=== PATIENT | female | born 1975 | race African-American/Black ===

== ENCOUNTER 2017-06-16 20:04 | Emergency (ER) | payer OTHER ==
[~2017-06-16] VITALS: Ht 162.6 cm; Wt 63.5 kg
[2017-06-16 20:07] VITALS: BP 142/90
[2017-06-16] MEDS ORDERED: TYLENOL325 MG PO (20:11)
[2017-06-16] MEDS ORDERED: ASPIR 8181 MG PO (20:11)
[2017-06-16] MEDS ORDERED: IBUPROFEN 200200 M1 PO (20:11)
[2017-06-16] MEDS ORDERED: PEPCID20 MG PO (21:08)
== END 2017-06-16 21:19 | disposition home or self-care (01) ==
LOC: ER 20:04
DX: K20.9 Esophagitis, unspecified (principal); F17.210 Nicotine dependence, cigarettes, uncomplicated

== ENCOUNTER 2017-07-20 15:11 | Emergency (ER) | payer OTHER ==
[~2017-07-20] VITALS: Ht 162.6 cm; Wt 68.0 kg
[~2017-07-20 15:11] MED LIST: ASPIR 8181 MG PO; IBUPROFEN 200200 M1 PO; PEPCID20 MG PO; TYLENOL325 MG PO
[2017-07-20 15:59] VITALS: BP 136/72
== END 2017-07-20 16:00 | disposition home or self-care (01) ==
LOC: ER 15:11
DX: K22.2 Esophageal obstruction (principal); F17.210 Nicotine dependence, cigarettes, uncomplicated

== ENCOUNTER 2018-12-14 11:33 | Emergency (ER) | payer OTHER ==
[~2018-12-14] VITALS: Ht 162.6 cm; Wt 71.3 kg
[2018-12-14 13:33] VITALS: BP 141/86
== END 2018-12-14 13:34 | disposition home or self-care (01) ==
LOC: ER 11:33
DX: T18.128A Food in esophagus causing other injury, initial encounter (principal); K22.2 Esophageal obstruction; Z98.890 Other specified postprocedural states; F17.210 Nicotine dependence, cigarettes, uncomplicated; Y92.89 Other specified places as the place of occurrence of the external cause

== ENCOUNTER 2019-09-23 13:40 | Emergency (ER) | payer OTHER ==
[~2019-09-23] VITALS: Ht 162.6 cm; Wt 68.0 kg
[2019-09-23 14:42] LABS: EOSINOPHILS 1.5 % (0.0-3.0); HEMATOCRIT 31.7 % (37.0-47.0); HEMOGLOBIN 9.5 gm/dL (12.0-15.0); LYMPHOCYTES 34.7 % (24.0-44.0); MCV 66.5 fL (80.0-100.0); MONOCYTES 8.9 % (1.0-8.0); PLATELET COUNT 379 thou/uL (150-400); POLYS 53.9 % (36.0-66.0); RBC 4.77 mil/uL (4.20-5.00); RDW 18.7 % (10.5-14.5); WBC 7.5 thou/uL (4.0-11.0)
[2019-09-23 14:50] LABS: CALCIUM 9.2 mg/dL (8.5-10.1); POTASSIUM 3.4 mmol/L (3.5-5.1)
[2019-09-23 15:42] LABS: LARGE PLATELETS OCCASIONAL; MICROCYTES 2+
[2019-09-23 15:43] LABS: ANISOCYTOSIS 2+; HYPOCHROMASIA 2+; TARGET CELLS FEW
[2019-09-23] MEDS ORDERED: PROTONIX40 M4 PO (18:02)
[2019-09-23 18:21] VITALS: BP 132/77
--- NOTE | 2019-09-24 15:32 | HC ---
[facility] [place] [address] CONSULTATION Name: FRANCINE PASCUAL Room #: DEP [facility]#: [id number] Admission: 09/23/19 Attend Phys: Discharge: 09/23/19 Date of : 71 Report #: [id number] THIS REPORT FOR: cc: [facility] - No family physician/PCP [facility] - No family physician/PCP Berny Farrar MD ~ CC: [facility] physician/PCP Tae Prado DR. DATE OF SERVICE: 09/23/2019 HISTORY OF PRESENT ILLNESS: The patient is a 44-year-old female who was eating a rib earlier this morning and it has become stuck in her throat. She has been unable to swallow since that time. Apparently, this has happened multiple times in the past. She has never had an upper endoscopy for dilation other than food impaction removal apparently. She does have a history of heartburn, possible esophageal stricture, not on any medications. Denies any fevers, chills, cough, chest pain, shortness of breath at this time. PAST MEDICAL HISTORY: Polysubstance abuse, , history of CVA in 04/2017, esophageal stricture, previous food impactions. CURRENT MEDICATIONS: None. ALLERGIES: No known drug allergies. REVIEW OF SYSTEMS: As per HPI. FAMILY HISTORY: Unknown. SOCIAL HISTORY: Smokes cigarettes; drinks alcohol on a regular basis; uses crack cocaine, last use was last evening. PHYSICAL EXAMINATION: VITAL SIGNS: Temperature is 97.8, pulse 68, blood pressure 143/61, respiratory rate is 20. GENERAL: She is alert and oriented x 3, in no acute distress. HEENT: Sclerae nonicteric. Oropharynx is clear. NECK: Supple. CARDIOVASCULAR: Regular rate and rhythm. CHEST: Clear to auscultation anteriorly bilaterally. ABDOMEN: Soft, nontender, nondistended, normoactive bowel sounds. EXTREMITIES: No cyanosis, clubbing or edema. LABORATORY DATA: Sodium 135, potassium 3.4, chloride 101, bicarbonate 23, BUN [facility] [address] [place] [address] CONSULTATION Name: FRANCINE PASCUAL Room #: [facility]#: [id number] Admission: 09/23/19 Attend Phys: Discharge: 09/23/19 Date of : 71 Report #: [id number], creatinine 1.0, glucose 75. WBC 7.5, hemoglobin 9.5, MCV 66.5, platelet count is 379. ASSESSMENT AND PLAN: Food impaction. We would recommend proceeding next with upper endoscopy. Will make further recommendations at that time. Thank you for allowing me to participate in her care. <ELECTRONICALLY SIGNED> By: Berny Farrar MD 09/24/19 1532 1730 31 Berny Farrar MD /nt
--- NOTE | 2019-09-24 15:32 | P ---
[facility] [place] [address] PROCEDURE REPORT Name: FRANCINE PASCUAL Room #: DEP [facility].#: [id number] Admission: 09/23/19 Attend Phys: Discharge: 09/23/19 Date of : 71 Report #: [id number] THIS REPORT FOR: cc: [facility] - No family physician/PCP [facility] - No family physician/PCP Berny Farrar MD ~ CC: [facility] physician/PCP Tae Prado DR. DATE OF SERVICE: 09/23/2019 PROCEDURE PERFORMED: Upper endoscopy with removal of food impaction, esophageal dilation and biopsies. HISTORY OF PRESENT ILLNESS: The patient is a 44-year-old female eating ribs earlier today, who has been unable to swallow her saliva or liquids since that time. Apparently has had a previous history of several food impactions in the past and a previous history of dilation, possible history of esophageal strictures. DESCRIPTION OF PROCEDURE: The risks and benefits of the procedure were explained to the patient, those risks including but not limited to bleeding, perforation and the risk of sedation. She understood these risks and gave informed consent. The procedure was performed in the operating room under general anesthesia. Next, using a standard Olympus upper endoscope, the scope was placed in the patient's mouth and advanced under direct vision into the proximal esophagus, at which point a food impaction was noted. I was able to gently push the food impaction into the stomach with gentle pressure without difficulty. Overall, the gastric mucosa was normal. The pylorus was normal and patent. The duodenal bulb, first and second portion were normal. The scope was then brought back up into the esophagus for further evaluation. There was evidence of grade B erosive esophagitis at the GE junction, possible eosinophilic esophagitis changes were noted throughout the esophagus. Biopsies were obtained. There was a narrowing in the proximal esophagus as well as some narrowing in the mid to distal esophagus as well. At this point, the scope was advanced into the stomach. A Savary guidewire was advanced through the scope, leaving the guidewire in place as the scope was then withdrawn. Next, a 42-[place] Savary dilation of the esophagus was then performed without difficulty. The wire and dilator were removed. The scope was reintroduced into the patient's stomach. There was a mucosal tear in the proximal esophagus. No evidence of bleeding. No other tears were noted. At this point, the scope was then withdrawn and the procedure terminated. The patient tolerated the procedure well. IMPRESSION: [facility] [address] [place] [address] PROCEDURE REPORT Name: FRANCINE PASCUAL Room #: DEP [facility]#: [id number] Admission: 09/23/19 Attend Phys: Discharge: 09/23/19 Date of : 71 Report #: [id number] 1. Food impaction, status post removal. 2. Possible changes of eosinophilic esophagitis. Biopsies obtained. 3. Narrowing in the esophagus at several different areas. 4. Grade B erosive esophagitis. RECOMMENDATIONS: 1. Observe the patient post-procedure. 2. Observe post-dilation. 3. Would recommend clear liquids initially and then advance diet slowly. Advised the patient to chew her food thoroughly. 4. Recommend daily PPI therapy. 5. Await biopsy results. Thank you for allowing me to participate in her care. <ELECTRONICALLY SIGNED> By: Berny Frarar MD 09/24/19 1532 1733 2044 Berny Farrar MD /nt
--- NOTE | 2019-09-27 14:07 | PATH ---
[facility] [address] [place] [address] PATHOLOGY RPT PROCEDURE Name: FRANCINE PASCUAL Room #: DEP [facility].#: [id number] Admission: 09/23/19 Date of : 71 Discharge: 09/23/19 Report #: [id number] Path Case #: [id number] [facility] Accession Number: [id number] . 01 Material submitted: . esophagus - ESOPHAGEAL BIOPSY R/O EOE . 01 Clinical history: . R/O eosinophilic esophagitis; piece of meat stuck in throat 30 minutes ago . 02 Diagnosis: Squamous mucosa, esophagus rule out eosinophilic esophagitis, endoscopic biopsy: - Mild esophagitis. - No increase in intraepithelial eosinophils. - Negative for intestinal metaplasia or dysplasia. . (IUV:mml; 09/27/2019) QLM 09/27/2019 1220 Local . 02 Electronically signed: . Netta Rader MD, Pathologist NPI- [id number] . 01 Gross description: . The specimen is received in formalin, labeled "Francine Pascual, esophageal biopsy, R/O eosinophilic esophagitis". Received are four segments of pale medina soft tissue ranging in size from 0.2 to 0.3 cm in maximum dimensions. The specimen is submitted entirely in cassette A1. (CAA; 09/26/2019) QA/QA 09/26/2019 1710 Local . 02 Pathologist provided ICD-10: K20.9 . 02 CPT . 940465 Specimen Comment: A courtesy copy of this report has been sent to [phone], [phone] Specimen Comment: [id number] Specimen Comment: Report sent to / DR MCGOWAN Performed at: [address] [id number] MD Rafael Malcolm MD Phone: [phone] Performed at: 02 [facility] [address] [place] [address] PATHOLOGY RPT PROCEDURE Name: FRANCINE PASCUAL Room #: DEP [facility]#: [id number] Admission: 09/23/19 Date of : 71 Discharge: 09/23/19 Report #: [id number] Path Case #: [id number] [address] [place], [place] [id number] MD Netta Rader MD Phone: [phone]
== END 2019-09-23 18:24 | disposition home or self-care (01) ==
LOC: ER 13:40
PROVIDERS: Emergency Medicine
DX: T18.128A Food in esophagus causing other injury, initial encounter (principal); F17.210 Nicotine dependence, cigarettes, uncomplicated; Z98.890 Other specified postprocedural states; Z86.73 Personal history of transient ischemic attack (TIA), and cerebral infarction without residual deficits; Y92.89 Other specified places as the place of occurrence of the external cause
CPT/HCPCS: 62110; 62900